=== PATIENT | male | born 1940 | race Caucasian/White ===

== ENCOUNTER 2023-08-13 10:15 | Outpatient (RCR) | payer MEDICARE, OTHER, SELFPAY ==
--- OUTSIDE RECORDS SUMMARY | 2023-05-30 14:36 | XMS_ITS | Referral Summary ---
Author Name Unknown Organization [facility] Address [address] [place] [address] Care Team Providers Care Patient Scheduling Manager Name Role Phone Margaret Chin Primary Care Provider [phone] Reason for Referral * - Authorized Specialty Diagnoses / Procedures Referred By Addi quijano Referred To Contact Cardiac Rehabilitation Diagnoses History of heart artery stent Ray Wong MD [address] [place] [id number] [address] Referral ID Status Reason Start Date Expiration Date V isits Requested Visits Authorized [id number] Authorized 04/24/2023 04/18/2024 1 1 Reason for Visit * Reason Comments Heart Problem * Consultation (Urgent) - Closed Specialty Diagnoses / Procedures Referred By Addi quijano Referred To Contact Cardiology Diagnoses Unstable angina ([facility]) Jori Landry PA [address] [place] [address] [facility] Cardiology [address] [place] [address], [address] [place] [address] Referral ID Status Reason Start Date Expiration Date V isits Requested Visits Authorized [id number] Closed Specialty Services Required 04/02/2023 03/27/2024 1 1 Encounter Details Date Type Department Care Team Description 04/24/2023 11:00 AM PDT Office Visit Merged With [facility] Cardiology [address], [place] [address] Ray Wong MD [address] [place] [address] [address] [place] [address] ASHD (arteriosclerotic heart disease) (Primary Dx); History of heart artery stent; Hyperlipidemia, unspecified hyperlipidemia type; Essential hypertension Allergies Active Allergy Reactions Criticality Noted Date Comments Sulfa (Sulfonamide Antibiotics) 08/29 documented as of this encounter (statuses as of 04/24/2023) Medications Medication Sig Dispensed Refills Start Date End Date Status tamsulosin (FLOMAX) 0.4 mg capsule Take 1 capsule (0.4 mg total) by mouth 2 (two) times a day 0 01/25/2023 Active amLODIPine (NORVASC) 5 mg tablet Take 1 tablet (5 mg total) by mouth daily 0 01/25/2023 Active lamoTRIgine (LaMICtal) 25 mg tablet Take 1 tablet (25 mg total) by mouth every evening 0 03/21/2023 Active aspirin 81 mg EC tablet Take 1 tablet (81 mg total) by mouth daily 30 tablet 0 04/02/2023 05/02/2023 Active clopidogreL (PLAVIX) 75 mg tablet Take 1 tablet (75 mg total) by mouth daily 90 tablet 3 04/24/2023 04/23/2024 Active atorvastatin (LIPITOR) 40 mg tablet Take 1 tablet (40 mg total) by mouth nightly 90 tablet 3 04/24/2023 04/23/2024 Active metoprolol succinate XL (TOPROL-XL) 25 mg 24 hr tablet Take 1 tablet (25 mg total) by mouth daily 90 tablet 3 04/24/2023 04/23/2024 Active atorvastatin (LIPITOR) 40 mg tablet Take 1 tablet (40 mg total) by mouth nightly 30 tablet 11 04/08/2023 04/24/2023 Discontinued (Reorder) clopidogreL (PLAVIX) 75 mg tablet Take 1 tablet (75 mg total) by mouth daily 30 tablet 11 04/09/2023 04/24/2023 Discontinued (Reorder) metoprolol succinate XL (TOPROL-XL) 25 mg 24 hr tablet Take 1 tablet (25 mg total) by mouth daily 30 tablet 11 04/09/2023 04/24/2023 Discontinued (Reorder) documented as of this encounter (statuses as of 04/24/2023) Active Problems Problem Noted Date Diagnosed Date HTN (hypertension) 04/05/2023 documented as of this encounter (statuses as of 04/24/2023) Resolved Problems Problem Noted Date Diagnosed Date Resolved Date Exertional dyspnea 04/05/2023 3 Left chest pressure 04/05/2023 04/08/20 23 documented as of this encounter (statuses as of 04/24/2023) Social History Tobacco Use Types Packs/Day Years Used Date Smoking Tobacco: Never Smokeless Tobacco: Never Tobacco Cessation:Counseling Given: Not Answered Alcohol Use Standard Drinks/Week Comments Yes 2 (1 standard drink = 0.6 oz pur e alcohol) Humiliation, Afraid, Rape, and Kick questionnair e Answer Date Recorded Within the last year, have y ou been afraid of your partner or ex-partner? No 04/05/2023 Within the last year, have y ou been humiliated or emotionally abused in other ways by your partner or ex-partner? No Within the last year, have y ou been kicked, hit, slapped, or otherwise physically hurt by your partner or ex-partner? No 04/05/2023 Within the last year, have y ou been raped or forced to have any kind of sexual activity by your partner or ex-partner? No 04/05/2023 AUDIT-C Answer Date Recorded Q1: How often do you have a drink containing alc ohol? 2-3 times a week 04/04/2023 Q2: How many drinks containi ng alcohol do you have on a typical day when you are drinking? 1 or 2 04/04/2023 Q3: How often do you have si x or more drinks on one occasion? Never 04/04/2023 Overall Financial Resource Strain (CARDIA) Answe r Date Recorded How hard is it for you to pa y for the very basics like food, housing, medical care, and heating? Not hard at all 04/05/2023 Hunger Vital Sign Answer Date Recorded Within the past 12 months, y ou worried that your food would run out before you got the money to buy more. Never true 04/05/20 23 Within the past 12 months, t he food you bought just didn't last and you didn't have money to get more. Never true 04/05/2023 PRAPARE - Transportation Answer Date Re corded In the past 12 months, has l ack of transportation kept you from medical appointments or from getting medications? No 12/2022 In the past 12 months, has l ack of transportation kept you from meetings, work, or from getting things needed for daily living? No 04/05/2023 Housing Stability Vital Sign Answer Haresh e Recorded In the last 12 months, was t here a time when you were not able to pay the mortgage or rent on time? No 04/05/2023 In the last 12 months, how many places have you lived? 1 04/05/2023 In the last 12 months, was t here a time when you did not have a steady place to sleep or slept in a nursing home (including now)? No 04/05/2023 Sex and Gender Information Value Date Recorded Sex Assigned at Male 04/04/2023 1:45 PM PDT Gender Identity Male 04/04/2023 1:45 PM PDT Sexual Orientation Straight 04/04/2023 1: 45 PM PDT Job Start Date Occupation Industry Not on file Not on file Not on file documented as of this encounter Last Filed Vital Signs Vital Sign Reading Time Taken Comments Blood Pressure 128/72 04/24/2023 11:15 AM PDT Pulse 68 04/24/2023 11:15 AM PDT Temperature - - Respiratory Rate - - Oxygen Saturation 97% 04/24/2023 11:15 AM PDT Inhaled Oxygen Concentration - - Weight 87.8 kg (193 lb 9.6 oz) 04/24/2023 11:15 AM PDT Height - - Body Mass Index 27.78 04/04/2023 8:53 AM PDT documented in this encounter Progress Notes * Ray Wong MD - 04/24/2023 11:00 AM PDT Subjective Patient ID: Nabil Gasca is a 82 y.o. male that presents today for had concerns including Heart Problem. HPI: 82 yo M h/o CAD here for F/U on his CAD. Patient is here with his . Since his discharge from the hospital when stent was placed, he has done well. He feels much better from energy standpoint. Denies chest pain, dyspnea, palpitations, lightheadedness, or s yncope. PROBLEM LIST: # CAD s/p ZELDA to LAD in the setting of unstable angina 04/07/2023. Past Medical History: Diagnosis Date Elevated PSA No past surgical history on file. Family History Problem Relation Age of Onset Heart disease Father Cancer Mother Social History Socioeconomic History Marital status: Tobacco Use Smoking status: Never Smokeless tobacco: Never Substance and Sexual Activity Alcohol use: Yes Alcohol/week: 2.0 standard drinks of alcohol Types: 2 Standard drinks or equivalent per week Drug use: No Allergies Allergen Reactions Sulfa (Sulfonamide Antibiotics) Current Medication List Sig amLODIPine (NORVASC) 5 mg tablet Take 1 tablet (5 mg total) by mouth daily aspirin 81 mg EC tablet Take 1 tablet (81 mg total) by mouth daily lamoTRIgine (LaMICtal) 25 mg tablet Take 1 tablet (25 mg total) by mouth every evening tamsulosin (FLOMAX) 0.4 mg capsule Take 1 capsule (0.4 mg total) by mouth 2 (two) times a day atorvastatin (LIPITOR) 40 mg tablet (Discontinued) Take 1 tablet (40 mg total) by mouth nightly clopidogreL (PLAVIX) 75 mg tablet (Discontinued) Take 1 tablet (75 mg total) by mouth daily metoprolol succinate XL (TOPROL-XL) 25 mg 24 hr tablet (Discontinued) Take 1 tablet (25 mg total) by mouth daily atorvastatin (LIPITOR) 40 mg tablet Take 1 tablet (40 mg total) by mouth nightly clopidogreL (PLAVIX) 75 mg tablet Take 1 tablet (75 mg total) by mouth daily metoprolol succinate XL (TOPROL-XL) 25 mg 24 hr tablet Take 1 tablet (25 mg total) by mouth daily Review of Systems Constitutional: Positive for fatigue. Negative for unexpected weight change. Respiratory: Positive for shortness of breath. Negative for chest tightness. Cardiovascular: Positive for chest pain. Negative for palpitations and leg swelling. Gastrointestinal: Negative for blood in stool. Endocrine: Negative for polydipsia. Genitourinary: Negative for hematuria. Musculoskeletal: Negative for joint swelling. Skin: Negative for rash. Neurological: Negative for dizziness and light-headedness. Hematological: Does not bruise/bleed easily. Psychiatric/Behavioral: The patient is not nervous/anxious. Objective BP 128/72 (BP Location: Left arm, Patient Position: Sitting) Pulse 68 Wt 87.8 kg SpO2 97% BMI 27.78 kg/m?? Physical Exam: General appearance: No apparent distress, well-nourished, pleasant, cooperative HEET: Normocephalic atraumatic, no scleral icterus, tongue midline, mucous membranes moist Neck: supple Cardiovascular: RRR, normal S1 and normal S2, no murmurs/ rubs/gallops, PMI nondisplaced, no JVD, no peripheral edema Respiratory: Good aeration, CTAB Abdomen: Soft, nontender, nondistended, + bowel sounds Neuro: Alert, no facial droop, tongue midline, no gross motor deficits Psych: appropriate affect Skin: no rashes on face, neck, and lower extremities Cath 04/07/2023: ZELDA to LAD Echo 04/06/2023: The left ventricle is normal in size and wall thickness. The left ventricular ejection fraction is normal. The ejection fraction is estimated to be 65-70%. The right ventricle is normal in size and function No significant valvular pathology seen. The IVC is of normal diameter and collapses greater than 50% with a sniff. This suggests a low right atrial pressure of 3 mm Hg. Assessment/Plan Comments: 1. ASHD (arteriosclerotic heart disease) 2. History of heart artery stent Ambulatory Referral to Cardiac Rehabilitation 3. Hyperlipidemia, unspecified hyperlipidemia type 4. Essential hypertension # CAD s/p ZELDA to LAD in the setting of unstable angina 04/07/2023. No anginal symptoms. LVEF normal. - Continue aspirin 81mg daily - Continue clopidogrel 75mg daily - Continue atorvastatin 40mg at bedtime - Continue metoprolol XL 25mg daily - Referral to [facility] cardiac rehab # HTN: - Continue amlodipine 5mg daily through PCP F/U in 5 months with labs. Meds refilled. Electronically signed by Ray Wong MD 04/24/2023 11:44 AM documented in this encounter Plan of Treatment Scheduled Orders Name Type Priority Associated Diagnoses Orde r Schedule Basic metabolic panel Lab Routine ASHD (arteriosclerotic heart disease) Expected: 09/23/2023, Expires: 10/23/2024 Complete blood count without diff Lab Routine ASHD (arteriosclerotic heart disease) Expected: 09/23/2023, Expires: 10/23/2024 Lipid panel Lab Routine ASHD (arteriosclerotic heart disease) Expected: 09/23/2023, Expires: 04/24/2024 Scheduled Referrals Name Type Priority Associated Diagnoses Order Schedule Ambulatory Referral to Cardiac Rehabilitation Outpatient Referral Routine History of heart artery stent Ordered: 04/24/2023 documented as of this encounter Medical Devices Implanted Type Area Predatory Animal Trapper Device Identifier Shelf Expiration Date Model / Serial / Lot Stent Xience Skypoint 2.25*15 - [id number] Implanted:Qty: 1 on 04/07/2023 at [facility] N/A: Coronary [employer] [id number] / / [id number] documented as of this encounter Visit Diagnoses Diagnosis ASHD (arteriosclerotic heart disease)- Primary Coronary atherosclerosis of unspecified type of vessel, [place] or graft History of heart artery stent Hyperlipidemia, unspecified hyperlipidemia type Essential hypertension Unspecified essential hypertension documented in this encounter Advance Directives Latest Code Status on File Code Status Date Activated Date Inactivated Comments Full Code 04/04/2023 3:34 PM 04/08/2023 2:56 PM Care Teams Patient Scheduling Manager Relationship Specialty Start Date End Date Margaret Chin [address] [place] [address] PCP - General Internal Medicine 04/02/23 documented as of this encounter
== END 2023-08-13 12:15 ==
LOC: CAR 10:15
PROVIDERS: PCP Internal Medicine; Referring Provider Internal Medicine Cardiovascular Disease; Visit Provider Internal Medicine Cardiovascular Disease
DX: Z95.5 Presence of coronary angioplasty implant and graft (principal)
CPT/HCPCS: 93798

== ENCOUNTER → 2023-12-10 | Outpatient (CLI) | payer MEDICARE, OTHER, SELFPAY ==
--- NOTE | 2023-12-10 16:03 | DI.NM.S_ITS ---
DATE OF SERVICE: 12/10/2023 NUCLEAR CARDIOLOGY MYOCARDIAL PERFUSION STUDY Procedure: Exercise treadmill stress and rest myocardial perfusion imaging with gating to assess ejection fraction and regional wall motion. Ordering Provider: Dr. Bc Wong. INDICATIONS: The patient is an 83-year-old male with a history of unstable angina requiring stenting to the LAD in March 2023, who now reports progressive exertional dyspnea and chest discomfort. Cardiac Stress: The patient was able to exercise for 5 minutes 1 second on standard Faisal protocol suggesting fairly good exercise capacity with an NIMESH of -5%, achieving 7.0 METs. He had a normal heart rate response to exercise, achieving a maximum heart rate of 127 BPM (92% of his predicted maximum). He had a mild hypertensive blood pressure response with a resting blood pressure of 160/90 increasing to a maximum of 210/90. He had no chest discomfort or other anginal symptoms. His resting ECG is normal with normal ST segments and there are no significant ST-segment shifts or arrhythmias with stress. At 3 minutes 45 seconds of exercise at a heart rate of 121 BPM, 24.9 mCi of technetium-99m Myoview was injected and he was imaged 15 minutes later using a quantitative gated SPECT acquisition protocol. Two days prior while at rest, he had been injected with 25.7 mCi of technetium-99m Myoview and was imaged 15 minutes later, again using a gated SPECT acquisition protocol. FINDINGS: 1. Raw data: There is fairly good myocardial tracer uptake. The lung/heart ratio is significantly elevated at 0.64, which can be an indication of pulmonary congestion but is nonspecific and requires clinical correlation. The TID ratio is normal at 0.79. 2. Quantitative gated SPECT: Post-stress ejection fraction is 77% without any focal wall motion abnormality. Resting ejection fraction is 71% with a high- normal resting end-diastolic volume of 116 mL. 3. Myocardial perfusion imaging: Post-stress supine images show a fairly normal myocardial perfusion pattern without any significant perfusion defects, supported by normal perfusion imaging in the prone position. The resting images show a similar perfusion pattern without any areas of improvement. IMPRESSION: 1. Normal myocardial perfusion study. 2. No evidence for myocardial ischemia or previous myocardial infarction. 3. Normal left ventricular systolic function without focal wall motion abnormality and borderline left ventricular enlargement. While the lung/heart ratio is elevated, this is nonspecific and requires clinical correlation. 4. No angina or ECG evidence of ischemia with exercise. He had a mild hypertensive blood pressure response but had no significant ectopy. dd: 12/12/2023 16:38:00 DICTATING MD/COPIES TO: Moe Baetty MD
--- NOTE | 2023-12-19 10:40 | DI.NM.S_ITS ---
DATE OF SERVICE: 12/10/2023 NUCLEAR CARDIOLOGY MYOCARDIAL PERFUSION STUDY PROCEDURE: Exercise treadmill stress and rest myocardial perfusion imaging with gating to assess ejection fraction and regional wall motion. ORDERING PROVIDER: Dr. Bc Wong. INDICATIONS: The patient is an 83-year-old male with a history of unstable angina requiring stenting to the LAD in March 2023, who now reports progressive exertional dyspnea and chest discomfort. CARDIAC STRESS: The patient was able to exercise for 5 minutes 1 second on standard Faisal protocol suggesting fairly good exercise capacity with an NIMESH of -5%, achieving 7.0 METs. He had a normal heart rate response to exercise, achieving a maximum heart rate of 127 BPM (92% of his predicted maximum). He had a mild hypertensive blood pressure response with a resting blood pressure of 160/90, increasing to a maximum of 210/90. He had no chest discomfort or other anginal symptoms. His resting ECG appears normal with normal ST segments. There were no significant ST-segment shifts or arrhythmias with stress. At 3 minutes 45 seconds of exercise at a heart rate of 121 BPM, 24.9 mCi of technetium-99m Myoview was injected and he was imaged 15 minutes later using a quantitative gated SPECT acquisition protocol. Two days prior, while at rest, he had been injected with 25.7 mCi of technetium- 99m Myoview and was imaged 15 minutes later, again using a gated SPECT acquisition protocol. FINDINGS: 1. Raw data: There is fairly good myocardial tracer uptake. The lung/heart ratio is significantly elevated at 0.64, which can be an indication of pulmonary congestion, but is nonspecific and requires clinical correlation. The TID ratio is normal at 0.79. 2. Quantitative gated SPECT: Post-stress ejection fraction is 77% without any focal wall motion abnormality. Resting ejection fraction is 71% with a high-normal resting end-diastolic volume of 116 mL. 3. Myocardial perfusion imaging: Post-stress supine images show a fairly normal myocardial perfusion pattern without any significant perfusion defects, supported by normal perfusion imaging in the prone position. The resting images show a similar perfusion pattern without any areas of improvement. IMPRESSION: 1. Normal myocardial perfusion study. 2. No evidence for myocardial ischemia or previous myocardial infarction. 3. Normal left ventricular systolic function without focal wall motion abnormality and borderline left ventricular enlargement. While the lung/heart ratio is elevated, this is nonspecific and requires clinical correlation. 4. No angina or ECG evidence of ischemia with exercise. He had a hypertensive blood pressure response, but no significant ectopy. Nabil Gasca - RICHARD/damian/MD doc#: [id number]/job#: [id number] dd: 12/12/2023 16:38:00 dt: 12/12/2023 18:28:00 DICTATING MD/COPIES TO: Moe Beatty MD; Dr. Bc Wong COPIES MNE: ELDON; ; Dr. Bc Wong
== END ==
PROVIDERS: PCP Internal Medicine; Referring Provider Internal Medicine Cardiovascular Disease; Visit Provider Internal Medicine Cardiovascular Disease
DX: R07.89 Other chest pain (principal); I25.10 Atherosclerotic heart disease of native coronary artery without angina pectoris; R06.09 Other forms of dyspnea; Z95.5 Presence of coronary angioplasty implant and graft
CPT/HCPCS: 78452; 93017; A9502